=== PATIENT | male | born 1955 | race African-American/Black ===

== ENCOUNTER 2018-02-25 15:40 | Inpatient (IN) | payer MEDICAID ==
[2018-02-25] MEDS ORDERED: Haloperidol Lactate 5 mg/mL 1mL Vial IM STA (16:27)
[2018-02-25] MEDS ORDERED: Haloperidol Lactate 5 mg/mL 1mL Vial ONE (16:36)
[2018-02-25 17:38] LABS: % BASOPHILS 0.4 % (0.0-2.0); % LYMPHOCYTES 27.3 % (20.0-50.0); % MONOCYTES 6.9 % (2.0-10.0); % NEUTROPHILS 63.4 % (40.0-80.0); EOSINOPHILE ABSOLUTE 0.1 Th/cmm (0.1-0.4); HEMATOCRIT 39.1 % (41.0-60); HEMOGLOBIN 13.2 gm/dL (12-16); LYMPHOCYTE ABSOLUTE 1.7 Th/cmm (1.5-3.0); MEAN CELL VOLUME 90.6 fl (80-99); MEAN CORPUSCULAR HEMOGLOBIN 30.5 pg (26.0-30.0); MEAN CORPUSCULAR HGB CONC 33.7 pg (28.0-36.0); MONOCYTE ABSOLUTE 0.4 Th/cmm (0.3-1.0); NEUTROPHILE ABSOLUTE 4.2 Th/cmm (1.8-8.0); PLATELET COUNT 248 Th/cmm (150-400); RED BLOOD COUNT 4.32 Mil/cmm (4.30-5.70); RED CELL DISTRIBUTION WIDTH 13.3 % (11.5-20.0); WHITE BLOOD COUNT 6.4 Th/cmm (4.8-10.8)
[2018-02-25 18:38] LABS: ALB/GLOB RATIO 1.5 (1.0-1.8); ALBUMIN 3.8 gm/dL (4.2-5.5); ALKALINE PHOSPHATASE 36 U/L (34-104); ANION GAP 14.2 (7.0-16.0); BILIRUBIN,TOTAL 0.4 mg/dL (0.3-1.0); BUN - UREA NITROGEN 14 mg/dL (7-25); CARBON DIOXIDE 21.1 mEq/L (21.0-31.0); CHLORIDE 108 mEq/L (98-107); GFR AFRICAN-AMERICAN > 60.0 ml/min (>90); GFR NON AFRICAN-AMERICAN > 60.0 ml/min; GLUCOSE 81 mg/dL (70-105); POTASSIUM SERUM 3.3 mEq/L (3.5-5.1); SGOT 20 U/L (13-39); SGPT/ALT 12 U/L (7-52); SODIUM SERUM 140 mEq/L (136-145); TOTAL PROTEIN,SERUM 6.3 gm/dL (6.0-8.3)
[2018-02-25] MEDS ORDERED: Potassium Chloride 20 mEq ER Tab PO ONE (19:26)
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
[2018-02-26] MEDS ORDERED: Potassium Chloride 20 mEq ER Tab PO ONE (07:57)
--- NOTE | 2018-02-26 08:42 | Diagnostic Imaging Report ---
CHEST X-RAY: AP view INDICATION: Medical clearance COMPARISON: None FINDINGS: No focal consolidation or effusions. Mild chronic changes are noted. Hypoventilatory changes are noted with suboptimal lung volumes. Heart size is normal. There is irregularity of the left sixth posterior probably related to previous fracture. No pneumothorax. IMPRESSION: Mild chronic lung changes and suboptimal lung volumes. No focal consolidation identified. Irregularity of the left sixth posterior rib. Findings are probably related to previous traumatic etiology/previous fracture. Please correlate with clinical findings and old exams. Left rib series may be obtained for further assessment. No evidence of pneumothorax.
--- NOTE | 2018-02-26 08:46 | Diagnostic Imaging Report ---
Right tib-fib 2 views Indication: pain Comparison: none Findings: There is evidence of previous old fracture extending from the tibial plateau to the mid tibial shaft with areas of callus formation. A 1 cm calcification is seen arising from or adjacent to the medial tibial plateau. Tiny ossicle is also seen adjacent to the proximal fibula. There appears to be dislocation of the tibiofibular joint. No focal soft tissue swelling. IMPRESSION: Evidence of old fracture extending from the tibial plateau to the mid tibial shaft. Areas of diffuse of callus formation are noted. There also appears to be evidence of dislocation of the tibiofibular articulation which is probably related to patient's old trauma. Clinical correlation and correlation with old exams is recommended. In the setting of trauma, if clinical symptoms persist and there is continued concern for an occult fracture, follow up exams in 5-7 days is recommended.
--- NOTE | 2018-02-26 08:54 | Diagnostic Imaging Report ---
CT right lower extremity without IV contrast History: Malunion and nonunion Comparison: Right tib-fib x-rays the same day Technique: Axial images were obtained from the right knee joint to the right midfoot without IV contrast. Multiplanar reconstructions were made. Total DLP 431, CTD I 7.9 Findings: There is evidence of old fracture which extends from the tibial plateau just slightly lateral to the tibial spines extending to the mid tibial shaft. The fracture lines are still seen throughout these regions. There is 7 mm gap along the proximal aspect of the fracture. Areas of large callus formation is seen. There is angulation of the fracture seen along the mid shaft. There is also evidence of tibiofibular joint dislocation with surrounding calcifications noted. 2 cm calcification is also seen along the medial knee joint region probably related to old trauma or ligamentous injury. Moderate degenerative changes of the knee joint are noted. IMPRESSION: Chronic appearing fracture which extends from the tibial plateau just lateral to the tibial spines and extends to the mid tibial shaft. The chronic fracture lines and fracture gap is still seen. Angulation of the fracture is also seen along the mid tibial shaft. Tibiofibular joint dislocation which appears chronic. Surrounding calcifications are noted. Additional calcification seen medial to the knee joint region likely due to previous traumatic etiology.
[2018-02-26] MEDS ORDERED: Bacitracin pkt 1 gm Pkt TP ONE (11:01)
[2018-02-26 11:13] LABS: URINE SOURCE CLEAN C
[2018-02-26 11:21] LABS: URINE BILIRUBIN NEGATIVE (NEGATIVE); URINE BLOOD NEGATIVE (NEGATIVE); URINE GLUCOSE (UA) NEGATIVE (NEGATIVE); URINE KETONE TRACE mg/dL (NEGATIVE); URINE LEUKOCYTE ESTERASE NEGATIVE (NEGATIVE); URINE NITRATE NEGATIVE (NEGATIVE); URINE PROTEIN NEGATIVE (NEGATIVE)
[2018-02-26 11:34] LABS: URINE CLARITY CLEAR (CLEAR); URINE COLOR YELLOW; URINE MICROSCOPIC INDICATED? YES; URINE RBC 0-2 /hpf (0-5)
[2018-02-26 11:35] LABS: URINE BACTERIA NONE SEEN /hpf (NONE SEEN); URINE EPITHELIAL CELLS RARE /lpf (FEW); URINE WBC 0-2 /hpf (0-5)
[2018-02-26 11:45] LABS: AMPHETAMINE URINE NEGATIVE (NEGATIVE); BARBITURATES URINE NEGATIVE (NEGATIVE); BENZODIAZEPINES QUAL URINE POSITIVE (NEGATIVE); CANNABINOID THC POSITIVE (NEGATIVE); COCAINE METABOLITE QUAL URINE POSITIVE (NEGATIVE); METHADONE URINE NEGATIVE (NEGATIVE); METHAMPHETAMINES QUAL URINE NEGATIVE (NEGATIVE); OPIATES (MORPHINE) QUAL. URINE NEGATIVE (NEGATIVE); PHENCYCLIDINE (PCP) URINE NEGATIVE (NEGATIVE); TRICYCLICS (TCA) QUAL. URINE NEGATIVE (NEGATIVE)
[2018-02-27] MEDS ORDERED: Haloperidol Lactate 5 mg/mL 1mL Vial IM STA (13:06)
[2018-02-27] MEDS ORDERED: Haloperidol Lactate 5 mg/mL 1mL Vial ONE (13:13)
[2018-02-28] MEDS ORDERED: Haloperidol Lactate 5 mg/mL 1mL Vial IM STA (10:19)
[2018-02-28] MEDS ORDERED: Haloperidol Lactate 5 mg/mL 1mL Vial ONE (10:31)
[2018-02-28] MEDS ORDERED: Lactated Ringer 1,000 ML IV ONE (11:47)
--- NOTE | 2018-03-01 08:02 | Consultation ---
DATE OF CONSULTATION: 02/28/2018 HISTORY OF PRESENT ILLNESS: This is a 62-year-old male, psychotic, likely history of schizophrenia, bizarre brought in on a hold by police, remains combative, agitated, mumbling to self, disorganized, unable to tell me basic plan for food, clothing and detention. PAST PSYCHIATRIC HISTORY: Likely schizophrenia. FAMILY HISTORY: Unclear. SOCIAL HISTORY: Unclear, but for all intents and purposes, it appears that he is homeless. Unclear drugs history. MEDICAL: He has been medically cleared. MEDICATIONS: Reviewed including doses and frequencies. MENTAL STATUS EXAMINATION: Disheveled, unkempt, mumbling to self, orientation AO to name only, nonsensical statements, disorganized, bizarre, unclear SI or HI, seems psychotic, responding to internal stimuli, poor insight, poor judgment. PROVISIONAL DIAGNOSIS: Schizophrenia. Under medical please see full H and P. RECOMMENDATIONS AND PLAN: We will extend the hold to a 14-day hold, grave disability, danger to others. Transfer to inpatient psych. JOB# [id number]
[2018-03-02 20:21] VITALS: BP 139/76
[2018-03-02] MEDS ORDERED: Magnesium Hydroxide (MOM) 30 mL UDC PO PRN (20:39)
--- NOTE | 2018-03-03 21:49 | Progress Notes ---
DATE: 03/03/2018 SUBJECTIVE: The patient was seen in the ER. History of schizophrenia, bizarre behaviors, had been very combative, disorganized. On [id number], the patient disorganized, mumbling to self, nonsensical, "fuck you," "leave me alone, fuck off". The patient refusing to talk to me, mumbling, pacing back and forth. ASSESSMENT: The patient is psychotic and disoriented and refusing interview. PLAN: I will be initiating antipsychotic medications given his ongoing psychotic symptoms. He remains quite unpredictable and impulsive clearly, gravely disabled. I will be initiating a 14 day hold for grave disability. JOB# [id number]
--- NOTE | 2018-03-03 23:21 | History & Physical ---
ADMIT DATE: 03/03/2018 REASON FOR ADMISSION: Psychiatric disorder. HISTORY OF PRESENT ILLNESS: This 62-year-old male, who was admitted to [facility] for underlying psychiatric illness by Dr. Lugo. Dr. Lugo requested medical H and P on this patient. The patient denies any medical complaints or concerns. PAST MEDICAL AND SURGICAL HISTORY: Denies any past medical history and past surgical history. FAMILY HISTORY: No significant family history. SOCIAL HISTORY: . No alcohol, tobacco, or street drug use. CURRENT MEDICATIONS: As per medication reconciliation. ALLERGIES: No known drug allergies. REVIEW OF SYSTEMS: As per HPI, 12-point system is negative. PHYSICAL EXAMINATION: VITAL SIGNS: Temperature 98.2, pulse 89, respirations 20, blood pressure 115/57, 98% on room air. Pain 0/10. HEART: S1, S2 normal. LUNGS: Clear. ABDOMEN: Soft, nontender. NEUROLOGIC: The patient awake. Moves all extremities. Grossly nonfocal exam. EXTREMITIES: No edema. AVAILABLE LABORATORY DATA: Reviewed. ASSESSMENT: 1. Hypokalemia. 2. Mental health disorders. 3. Drug abuse. PLAN: The patient admitted to [facility]. Psych management per psychiatrist. Potassium rich diet. Counseled on street drug avoidance and alcohol moderation. The patient is medically stable to participate in activities at [facility]. Thank you, Dr. Lugo, for allowing me to participate in the care of this patient. [facility]# [id number]
--- NOTE | 2018-03-04 16:16 | Progress Notes ---
DATE: 03/04/2018 SUBJECTIVE: The patient was seen in the ER. History of schizophrenia, bizarre behaviors. On [id number], the patient disorganized, distracted, not answering questions. States he lives with his nephew, but unable to give an address, unable to confirm any of this. Nursing notes walking around, mumbling, preoccupied with his own thoughts, confused, sometimes verbally aggressive, telling people to "fuck off," yelling profanities, threatening to harm an unseen person. ASSESSMENT: The patient remains symptomatic, still very psychotic, and disorganized On a positive note, he is taking medications. PLAN: We will increase Risperdal dosing today. The patient remains quite dangerous unpredictable, quite psychotic, gravely disabled, disheveled, unkempt. JOB# [id number]
--- NOTE | 2018-03-06 01:08 | Progress Notes ---
DATE: 03/05/[address] Lugo. SUBJECTIVE: Case was discussed with staff of the patient, reviewed records. This is a 62-year-old male, who was admitted on the 02/25/2018 because of history of schizophrenia, acting bizarre, brought by the police, combative, agitated, mumbling to himself, very disorganized, unable to make safe plan for self-care. The patient continues to be rambling, disorganized, easily distracted, looking disheveled, unable to give address or give any appropriate history, confused, sometimes verbally aggressive using foul language. He has been compliant with the medication with no side effects and he is on Risperdal 1 mg twice a day. No sedation, no nausea, and no extrapyramidal symptoms. We will continue to work with the patient in group therapy, milieu therapy, and adjust the medication as needed. JOB# [id number]
--- NOTE | 2018-03-06 23:07 | Progress Notes ---
DATE: 03/06/2018 Case was discussed with staff of the patient, reviewed records. The patient continues to be bizarre. Continues to be unpredictable and impulsive, mumbling to himself, unable to carry on a conversation and confused, sometimes verbally aggressive using foul language. He is sleeping better and eating better. No side effects with the medication, no sedation, no nausea, no extrapyramidal symptoms and we will continue the patient in group therapy, milieu therapy, and adjust the medication as needed. [facility]# [id number]
--- NOTE | 2018-03-08 17:23 | Progress Notes ---
DATE: 03/07/2018 The patient is symptomatic, psychotic, not making any sense, mumbling to self, stating he has an appointment that he must get this, scratching himself, walking back and forth, talking to himself, unable to verbalize any sort of plan for self-care. We are trying to help him with placement and disposition. Staff, they need to redirect him. He needs redirection to eat, very poor ADLs, very disheveled, unkempt. ASSESSMENT: The patient having full conversations with himself, rambling nonsensically, perseverative. PLAN: We will be increasing his dosing of antipsychotic medications today to function at a lower level of care in regards to his ability to care for his basic food, clothing, and jail. JOB# [id number]
--- NOTE | 2018-03-08 18:07 | Progress Notes ---
DATE: 03/08/2018 SUBJECTIVE: The patient still mumbling to self, yelling at times, is singing, gravely disabled, unable to have any sort of meaningful conversation about how he will provide for his basic needs. We are trying to help him with placements in the meantime, continuing to treat his ongoing psychotic symptoms. He is actively psychotic. Does not know where he is or what is going on. Still becomes unruly at times, highly impulsive. ASSESSMENT: The patient remains symptomatic, grossly psychotic, disorganized, confused, nonsensical. PLAN: I will be increasing his Risperdal dosing today. JOB# [id number]
--- NOTE | 2018-03-10 10:44 | Progress Notes ---
DATE: 03/09/2018 SUBJECTIVE: The patient remains in the hospital, psychotic, mumbling to self, preoccupied, talking to himself. Slept about 4 hours last night. Multiple episodes of awakenings, preoccupied, easily agitated, irritable, repetitive talk to himself, seeing himself, mumbling to himself, unable to verbalize any sort of plan of self-care. We are actively trying to help him with placement and disposition. On a positive note, he has been compliant with medications, confused, disoriented and making nonsensical statements. ASSESSMENT: The patient is a psychotic, grossly psychotic, bizarre. PLAN: We will continue to monitor, increase dosing of Risperdal today. [facility]# [id number]
--- NOTE | 2018-03-11 01:35 | Progress Notes ---
DATE: 03/10/2018 SUBJECTIVE: The patient is currently in the hospital, remains bizarre, responding to internal stimuli, mumbling to self, laughing to self, not at all able to talk to me about how he will care for his basic food, clothing, and detention. He is homeless, actively having nonsensical conversations with himself. When I asked him where he is going to go, he states, "I have no idea." Currently on Risperdal dosing, seems to be tolerating well. I will be increasing his dosing of Risperdal today. Still pacing, pacing back and forth, using profanities at times, yelling at times. ASSESSMENT AND PLAN: The patient is symptomatic, psychotic, gravely disabled. I will be increasing his Risperdal dosing. emergency services professional attempting to help him with a safe discharge plan. JOB# [id number]
[2018-03-11] MEDS ORDERED: RISPERIDONE PO SCH (17:00)
--- NOTE | 2018-03-11 23:25 | Progress Notes ---
DATE: 03/11/2018 SUBJECTIVE: The patient in the hospital, still talking to self, mumbling to self, likely approaching his baseline to a large extent. No agitation and he has not been combative today. We have nowhere to send him and he is too gravely disabled to take care of himself. He is too confused, too psychotic to be involved in any sort of treatment and disposition planning. On a positive note, he is taking medications, seems to be tolerating well. Tolerant of Risperdal. I have been titrating the dose. ASSESSMENT AND PLAN: The patient with ongoing psychotic symptoms, still talking to self, mumbling to self, totally disengaged during interview, making nonsensical statements back to me when I asked him questions. We will continue to monitor, increase dosing of Risperdal. JOB# [id number]
[2018-03-12] MEDS: risperiDONE 4 mg Tab PO SCH ×2 (09:14→18:06)
--- NOTE | 2018-03-13 01:56 | Progress Notes ---
DATE: 03/12/2018 SUBJECTIVE: The patient is still talking to himself, mumbling to himself, pacing up and down the hallway, having full conversation with himself, remains psychotic, unable to participate in any type of conversation about basic food, clothing, and snf, disheveled, unkempt, not taking care of his ADLs, needing prompting to eat, concerns that if he was not prompted to eat. He would simply not eat, fair sleep with personal injury paralegal awakenings, tolerant of treatment thus far. ASSESSMENT: The patient remains a symptomatic, ongoing psychotic symptoms, mumbling to self. PLAN: I will be increasing his Risperdal dosing today. [facility]# [id number]
[2018-03-13] MEDS: risperiDONE 4 mg Tab PO SCH ×2 (09:34→16:46)
--- NOTE | 2018-03-13 23:32 | Progress Notes ---
DATE: 03/13/2018 The patient is currently in the hospital, still talking to herself, mumbling to self, likely approaching his baseline, calmer, more cooperative, unruly behaviors. Sleeping well, eating well, taking medications, tolerant to medications. Currently on dosing of Risperdal. ASSESSMENT: The patient likely at his baseline, calmer, more cooperative, just internally preoccupied. PLAN: We will continue to monitor and titrate and adjust medications. We are trying to help him with placement. [facility]# [id number]
[2018-03-14] MEDS: risperiDONE 4 mg Tab PO SCH (09:25)
--- NOTE | 2018-03-14 23:34 | Discharge Summary ---
DATE OF DISCHARGE: 03/14/2018 JUSTIFICATION FOR HOSPITALIZATION: A 72-hour hold. HISTORY OF PRESENT ILLNESS: A 62-year-old male brought into the ER on a hold, had been quite psychotic, rambling, disoriented, talking nonsense did not know where he was, what was going on, having full conversations with himself, unable to verbalize a plan for basic food, clothing, and snf. Noted to be disheveled, unkempt. PAST PSYCHIATRIC HISTORY: Unclear, likely chronic schizophrenia. SOCIAL HISTORY: Homeless, unknown social support system in place. No overt drugs or alcohol. 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 PAST MEDICAL HISTORY: Please see full H and P. HOSPITAL COURSE: The patient admitted to the Geropsych Unit. Medications were adjusted and titrated, antipsychotic medications initiated, slowly titrated. Over the course of the hospitalization, the patient did remain quite psychotic. Continued to respond to internal stimuli; however, he was no longer exhibiting any aggressive behaviors, no agitation, no evidence of any violent behaviors. He was eating on his own volition and appropriately dressed and groomed. No disrobing, for example bathrooming on his own. Staff noting no agitation, no fighting. Towards the latter end of his hospitalization, he had reached his baseline, continued to respond to internal stimuli, but was quite benign and essentially pleasantly psychotic. Placement was found and he was stepped down to a lower level of care. MENTAL STATUS EXAMINATION: Unkempt, fair eye contact. Speech is rambling. Mood "okay." Affect flat. Thought processes are disorganized. No SI, no HI, ongoing auditory hallucinations. No overt delusions. Insight and judgment reasonable. PROVISIONAL DIAGNOSIS: Schizophrenia. MEDICAL: Please see full H and P. PROGNOSIS: The patient follows up to a snf and remains compliant with treatment. Prognosis will improve, otherwise guarded. JOB# [id number]
== END 2018-03-14 16:25 | DRG 750 ==
LOC: ER 15:40 → EDBD 15:40 → GERO 03-02 17:05
PROVIDERS: ADMIT Psychiatry & Neurology Psychiatry; ATTEND Psychiatry & Neurology Psychiatry
DX: F20.1 Disorganized schizophrenia (principal); Z59.0 Homelessness; E87.6 Hypokalemia; S80.811A Abrasion, right lower leg, initial encounter; F99 Mental disorder, not otherwise specified; F19.10 Other psychoactive substance abuse, uncomplicated; S93.01XA Subluxation of right ankle joint, initial encounter; X58.XXXA Exposure to other specified factors, initial encounter; Y93.89 Activity, other specified; Y92.89 Other specified places as the place of occurrence of the external cause; Y99.8 Other external cause status
CPT/HCPCS: 36415-UA; 71045-TC; 73590-TC-RT; 73700-TC-RT; 80053-TC; 80307; 80320-TC; 81001-TC; 82948-90; 83735-TC; 84100-TC; 84484-TC; 85025-TC; 93005; J1200; J1630; J2060